=== PATIENT | female | born 1950 | race Caucasian/White ===

== ENCOUNTER 2021-11-13 09:47 | Day surgery (SDC) | payer OTHER, BC ==
[2021-11-12 09:52] VITALS: BMI 33.3
[2021-11-13] MEDS ORDERED: PROPOFOL 20 ML ONE ×2 (11:13)
[2021-11-13 12:14] VITALS: TEMP 97.8
[2021-11-13 12:19] VITALS: BP 112/74; PULSE 80
== END 2021-11-13 12:20 | disposition home or self-care (01) ==
LOC: FASU-ENDO 09:47
PROVIDERS: ATTEND Internal Medicine Gastroenterology
PROC: 0DBN8ZX Excision of Sigmoid Colon, Via Natural or Artificial Opening Endoscopic, Diagnostic (ICD-10-PCS; principal; 2021-11-13 11:26)
DX: Z12.11 Encounter for screening for malignant neoplasm of colon (principal); D12.5 Benign neoplasm of sigmoid colon; K64.1 Second degree hemorrhoids
CPT/HCPCS: 88305-TC

== ENCOUNTER 2021-12-25 10:17 | Day surgery (SDC) | payer OTHER, BC ==
[2021-12-20 16:12] VITALS: BMI 35.8
[2021-12-25 11:54] VITALS: TEMP 97.8
[2021-12-25 12:27] VITALS: BP 110/56; PULSE 55
== END 2021-12-25 12:34 | disposition home or self-care (01) ==
LOC: FASU-ENDO 10:17
PROVIDERS: ATTEND Internal Medicine Gastroenterology
PROC: 0DB78ZX Excision of Stomach, Pylorus, Via Natural or Artificial Opening Endoscopic, Diagnostic (ICD-10-PCS; 2021-12-25)
PROC: 0DB48ZX Excision of Esophagogastric Junction, Via Natural or Artificial Opening Endoscopic, Diagnostic (ICD-10-PCS; 2021-12-25)
PROC: 0DB98ZX Excision of Duodenum, Via Natural or Artificial Opening Endoscopic, Diagnostic (ICD-10-PCS; principal; 2021-12-25 11:29)
DX: K29.50 Unspecified chronic gastritis without bleeding (principal); K29.80 Duodenitis without bleeding; K44.9 Diaphragmatic hernia without obstruction or gangrene; K31.7 Polyp of stomach and duodenum; K20.90 Esophagitis, unspecified without bleeding
CPT/HCPCS: 88305-TC; 88342-TC